=== PATIENT | male | born 1955 | race Caucasian/White ===

== ENCOUNTER 2018-08-06 18:19 | Inpatient (IN) ==
[2018-08-06] MEDS ORDERED: Ketorolac 30 MG/ML VIAL IVP ONE (20:43)
[2018-08-06 21:00] LABS: Basophils # 0.1 K/mcL (0.0-0.2); Basophils % 0.3 %; Eosinophils # 0.1 K/mcL (0.0-0.6); Eosinophils % 0.5 %; Hematocrit 37.8 % (37.5-50.1); Hemoglobin 12.7 g/dL (12.9-16.9); Immature Granulocytes % 0.5 % (0-4); Lymphocytes # 2.7 K/mcL (0.6-4.6); Lymphocytes % 12.3 %; Mean Corpuscular HGB Conc 33.6 g/dL (31.6-35.5); Mean Corpuscular Hemoglobin 34.8 pg (28.0-33.3); Mean Corpuscular Volume 103.6 fL (83.0-100.0); Mean Platelet Volume 10.8 fL (9.4-12.4); Monocytes # 1.5 K/mcL (0.0-1.3); Monocytes % 6.8 %; Neutrophils # 17.4 K/mcL (1.6-8.9); Platelet Count 426 K/mcL (140-400); Red Blood Count 3.65 M/mcL (4.19-5.50); Red Cell Distribution Width 12.9 % (11.5-14.5); Segmented Neutrophils % 79.6 %
[2018-08-06 21:07] LABS: INR 1.3; Prothrombin Time 14.5 Seconds (9.4-12.1)
[2018-08-06 21:10] LABS: Activated Partial Thrombo Time 31.8 Seconds (26.0-36.0)
[2018-08-06 21:21] LABS: Alanine Aminotransferase 13 Units/L (7-52); Albumin/Globulin Ratio 0.7 (1.1-2.2); Alkaline Phosphatase 243 Units/L (34-104); Aspartate Amino Transferase 34 Units/L (13-39); BUN/Creatinine Ratio 20 (6-26); Bilirubin,Direct 0.8 mg/dL (0.0-0.2); Bilirubin,Indirect 1.4 mg/dL (0.0-1.2); Bilirubin,Total 2.2 mg/dL (0.3-1.0); Blood Urea Nitrogen 32 mg/dL (8-23); Calcium 8.9 mg/dL (8.6-10.3); Carbon Dioxide 25 mEq/L (23-29); Chloride 101 mEq/L (98-107); Creatine Kinase 30 Units/L (30-223); Ethanol < 10 mg/dL (Less than 10); Globulin 4.6 g/dL (2.4-3.5); Glucose 103 mg/dL (70-105); Lipase 22 Units/L (11-82); Magnesium 1.6 mg/dL (1.6-2.6); Osmolality,Calculated 291 (280-300); Potassium 3.6 mEq/L (3.5-5.1); Sodium 137 mEq/L (136-145); Total Protein 7.6 g/dL (6.4-8.9); eGFR For Non-African Americans 44 (> 60)
--- NOTE | 2018-08-06 21:32 | Internal Med History&Physical ---
Date of Encounter: 08/06/18 Time of Encounter: 21:27 Internal Medicine - H&P: HPI Chief complaint: abdominal distension Admitted From: Home Plans for Post Hospital Care: Home History of present illness: Rashard Lord is a 63-year-old man with hypertension and is an alcoholic who is referred from [facility] for admission for evaluation of new onset ascites and concern for SBP. The patient states that in the past 8 weeks he has noticed increasing pedal edema which has been progressing upwards and subsequently developed abdominal distention that has continued to expand. He now has abdominal cramping and pain more predominantly in the lower hemiabdomen but denies fever or chills. Says he was prescribed furosemide and spironolactone by his primary care physician but it has not done much to help him as per his who accompanied him. He had a CT scan done on 07/27 and another done today at [facility] which showed a very large amount of ascites throughout the abdomen that increased in size from the first to the second study, moderately large pleural effusion and small left effusion. He was seen to have a WBC of 19.2 and Cr of 1.6 there. He was started on PipTazo prior to transfer to [place]. At this time he reports no active complaints. He admits ongoing alcohol use, last drink was yesterday. He denies blood in his stool or hematemesis. Past Med Surg Social Fam HX - Past Medical History Medical history: COPD, hypertension, liver disease Psychiatric history: no psych history - Past Surgical History Additional surgical history: elbow surgery - Social History Smoking Status: Current every day smoker Packs per day: 1/3 Smokeless Tobacco Status: No Alcohol use: recent Drug use: none All Systems PM: A 10-system review of systems was performed and is negative for pertinent fi ndings except as documented above in the HPI. Family history obtained and found noncontributory. - Constitutional Vitals: Temp Pulse Resp BP Pulse Ox 97.5 F L 96 19 98/66 98 08/06/18 20:33 08/06/18 20:33 08/06/18 20:33 08/06/18 20:33 08/06/18 20:33 Exam: Vitals: Reviewed General: NAD. Self-ambulatory. Skin: Pale, ashy appearing. HEENT: Moist mucous membranes. No conjunctivae pallor. Neck: No lymphadenopathy. No JVD. No carotid bruits. No palpable thyroid. Chest: Normal thoracic expansion. Diminished breath sounds bilaterally. Heart: Normal S1 & S2; rhythmic. No rubs or murmurs. Abdomen: Distended but not tense, mildly tender to palpation in the epigastrium and infraumbilical region. No peritoneal reaction. Extremities: No clubbing, cyanosis. 2+ pitting edema. No calf tenderness. Normal distal pulses. Neurological: Awake, alert and oriented to person, place and time. No focal deficits. Psych: Affect appropriate. Internal Med - H&P Results - Labs CBC & Chem 7: 08/06/18 20:49 08/06/18 20:49 Labs: Short CBC 08/06/18 Range/Units 20:49 WBC 21.9 H (4.3-11.1) K/mcL Hgb 12.7 L (12.9-16.9) g/dL Hct 37.8 (37.5-50.1) % Plt Count 426 H (140-400) K/mcL Neutrophils # 17.4 H (1.6-8.9) K/mcL BMP 08/06/18 20:49 Sodium 137 Potassium 3.6 Chloride 101 Carbon Dioxide 25 BUN 32 H Creatinine 1.61 H Glucose 103 Calcium 8.9 Liver Function 08/06/18 Range/Units 20:49 Total Bilirubin 2.2 H (0.3-1.0) mg/dL Direct Bilirubin 0.8 H (0.0-0.2) mg/dL AST 34 (13-39) Units/L ALT 13 (7-52) Units/L Alkaline Phosphatase 243 H (34-104) Units/L Albumin 3.0 L (3.5-5.7) g/dL - Assessment and plan (1) Ascites Current Visit: Yes Status: Acute Assessment and plan: The patient denies a history of viral hepatitides and just chronic yet ongoing alcohol abuse. It seems he has developed liver cirrhosis with resultant portal hypertension at this time. He says he has never been tapped before. He does have some abdominal discomfort but appears to be associated more with the distension. He has no diffuse pain, peritoneal reaction, fever or chills. He does have unexplained leukocytosis however. He was given PipTazo already which is adequate. Will place on ceftriaxone 2grs q24hrs to commence tomorrow morning after his paracentesis is performed and the fluid studies confirm or suggest SBP. If it does not, then it can be discontinued. IR consultation is requested as the discussion was already held with my predecessor who accepted the admission earlier. He should be plugged in to the GI clinic for follow up as he will also need an EGD to screen for esophageal varices. Will continue oral diuretics in the interim and provide symptomatic relief. Qualifiers: Ascites type: due to alcoholic cirrhosis Qualified Code(s): K70.31 - Alcoholic cirrhosis of liver with ascites (2) Alcohol dependence Current Visit: Yes Status: Acute Assessment and plan: Will place on CIWA protocol. Qualifiers: Substance use status: other alcohol-induced disorder Qualified Code(s): F10.288 - Alcohol dependence with other alcohol-induced disorder (3) Hypertension Current Visit: Yes Status: Acute Assessment and plan: Will resume home medications upon verification. Qualifiers: Hypertension type: essential hypertension Qualified Code(s): I10 - Essential (primary) hypertension (4) Smoker Current Visit: Yes Status: Acute Assessment and plan: Counseled and resources made available. Says he uses an inhaler at home but cannot specify which. Will order nebulizer therapy prn. (5) DVT prophylaxis Current Visit: Yes Status: Acute Assessment and plan: IPC stockings ordered. - Time Spent With Patient Total time spent is greater than 50% in coordination of care (as documented) at patient's floor/unit and/or counseling patient: Greater than 35 minutes
[2018-08-06] MEDS ORDERED: Ipratropium/Albuterol Neb 3 ML IH PRN (21:33)
--- NOTE | 2018-08-07 08:32 | Internal Med Progress Note ---
<Morris Bernal - Last Filed: 08/07/18 16:09> Hospitalist Progress Note - Encounter Date of Encounter: 08/07/18 Time of Encounter: 09:45 - Subjective Interval History: 08/07 Patient seen and evaluated at bedside with and family in accompaniment. He has not been feverish, denies hemoptysis, bruising, hematochezia; no tremor, agitation, or pain. Screening Ankle-Brachial index resulted - normal bilateral MICAELA right 1.18, left 1.16; will hold off on arterial dopplar for now. Admission history: 63 y/o male, [facility] transfer for new onset ascites; he describes 8 weeks of pedal edema; progressively ascending swelling, and abdo monique distension. CT x 2 07/27 then 08/06 showing interval worsening of ascites. - Exam Vitals: Temp Pulse Resp BP Pulse Ox 99.0 F 90 16 107/71 91 08/07/18 07:44 08/07/18 07:44 08/07/18 07:44 08/07/18 07:44 08/07/18 07:44 Exam: Vitals: 99, 90, 16, 107/71, 91%RA General: NAD. Self-ambulatory. Skin: no jaundice HEENT: Moist mucous membranes. No conjunctivae pallor, nonicteric Neck: No lymphadenopathy. No JVD. No carotid bruits. No palpable thyroid. Chest: Normal thoracic expansion. Diminished breath sounds bilaterally. Heart: Normal S1 & S2; rhythmic. No rubs or murmurs. Abdomen: Distended and taught, no caput Extremities: No clubbing, cyanosis. 2+ pedal edema, calves encased in EPCDs Neurological: Awake, alert and oriented to person, place and time. No focal deficits. No tremor. Psych: Affect appropriate - Assessment and Plan (1) Ascites Current Visit: Yes Status: Acute Assessment and Plan: Paracentesis with IR ([facility] staff) planned today; continuing lasix and spironolactone (K 3.6 today), will send fluid for culture Will initiate rocephin after tap Regular diet (2) Alcohol dependence Current Visit: Yes Status: Acute Assessment and Plan: Continue CIWA protocol No tremor or agitation on exam today (3) Hypertension Current Visit: Yes Status: Acute Assessment and Plan: Chronic, continuing acei-i/diuretics/bb (4) Smoker Current Visit: Yes Status: Acute Assessment and Plan: Discussed alcohol and tobacco risks in setting of his chronic and acute conditions (5) DVT prophylaxis Current Visit: Yes Status: Acute Assessment and Plan: EPCDs - Time Spent with Patient Total time spent is greater than 50% in coordination of care (as documented) at patient's floor/unit and/or counseling patient: Internal Medicine: Result - Labs CBC & Chem 7: 08/06/18 20:49 08/06/18 20:49 Labs: Short CBC 08/06/18 Range/Units 20:49 WBC 21.9 H (4.3-11.1) K/mcL Hgb 12.7 L (12.9-16.9) g/dL Hct 37.8 (37.5-50.1) % Plt Count 426 H (140-400) K/mcL Neutrophils # 17.4 H (1.6-8.9) K/mcL BMP 08/06/18 20:49 Sodium 137 Potassium 3.6 Chloride 101 Carbon Dioxide 25 BUN 32 H Creatinine 1.61 H Glucose 103 Calcium 8.9 Liver Function 08/06/18 Range/Units 20:49 Total Bilirubin 2.2 H (0.3-1.0) mg/dL Direct Bilirubin 0.8 H (0.0-0.2) mg/dL AST 34 (13-39) Units/L ALT 13 (7-52) Units/L Alkaline Phosphatase 243 H (34-104) Units/L Albumin 3.0 L (3.5-5.7) g/dL - ABG Interpretation ABG results: PT/INR, D-dimer PT 14.5 Seconds (9.4-12.1) H 08/06/18 20:49 Consult Discharge Plan - Plan Referrals: Sam Perez MD [Primary Care Provider] - <Ian Wetzel - Last Filed: 08/07/18 16:33> Hospitalist Progress Note - Encounter Date of Encounter: 08/07/18 - Exam Vitals: Temp Pulse Resp BP Pulse Ox 97.8 F 94 18 98/61 99 08/07/18 13:32 08/07/18 13:32 08/07/18 13:32 08/07/18 13:32 08/07/18 13:32 - Assessment and Plan (1) Ascites Current Visit: Yes Status: Chronic (2) SBP (spontaneous bacterial peritonitis) Current Visit: Yes Status: Suspected Assessment and Plan: Rocephin started. (3) Alcohol dependence Current Visit: Yes Status: Chronic (4) Hypertension Current Visit: Yes Status: Chronic (5) Smoker Current Visit: Yes Status: Acute (6) DVT prophylaxis Current Visit: Yes Status: Acute (7) Tobacco abuse Current Visit: Yes Status: Chronic - Time Spent with Patient Total time spent is greater than 50% in coordination of care (as documented) at patient's floor/unit and/or counseling patient: Internal Medicine: Result - Labs CBC & Chem 7: 08/06/18 20:49 08/06/18 20:49 Labs: Short CBC 08/06/18 Range/Units 20:49 WBC 21.9 H (4.3-11.1) K/mcL Hgb 12.7 L (12.9-16.9) g/dL Hct 37.8 (37.5-50.1) % Plt Count 426 H (140-400) K/mcL Neutrophils # 17.4 H (1.6-8.9) K/mcL BMP 08/06/18 20:49 Sodium 137 Potassium 3.6 Chloride 101 Carbon Dioxide 25 BUN 32 H Creatinine 1.61 H Glucose 103 Calcium 8.9 Liver Function 08/06/18 08/07/18 Range/Units 20:49 13:43 Total Bilirubin 2.2 H (0.3-1.0) mg/dL Direct Bilirubin 0.8 H (0.0-0.2) mg/dL AST 34 (13-39) Units/L ALT 13 (7-52) Units/L Alkaline Phosphatase 243 H (34-104) Units/L Albumin 3.0 L 2.2 L (3.5-5.7) g/dL Urine 08/07/18 Range/Units 10:00 Urine Color Dark Yellow (Yellow) Urine Clarity Clear (Clear) Urine pH 5.5 (5.0-8.0) pH Units Ur Specific [place] 1.022 (1.010-1.025) Urine Protein Negative (Neg-Trace) mg/dL Urine Glucose (UA) Normal (Normal) mg/dL - ABG Interpretation ABG results: PT/INR, D-dimer PT 14.5 Seconds (9.4-12.1) H 08/06/18 20:49 - Impressions Impressions Paracentesis Ultrasound 08/07/18 00:00 IMPRESSION: Successful ultrasound-guided paracentesis. Nearly 6 L of fluid was removed. D/ / Harpreet Olguin MD / Harpreet Olguin MD Interpreting Provider: Harpreet Olguin MD Abdomen/Pelvis CT 08/07/18 11:30 IMPRESSION: 1. Large volume abdominal/pelvic ascites. 2. Mildly nodular contour of the liver could relate to cirrhosis. No discrete liver lesion seen. 3. Partially visualized large right pleural effusion with adjacent compressive atelectasis. Small left pleural effusion. 4. Mild sigmoid diverticulosis. 5. Small to moderate hiatal hernia. 6. Although the bladder is not well distended, there is moderate wall thickening which is nonspecific. Please correlate with urinalysis. D/ / Harpreet Olguin MD / Harpreet Olguin MD Interpreting Provider: Harpreet Olguin MD - Attending Attestation I examined this patient and my medical decision-making was reviewed with the Resident Physician on 08/07/18. I agree with the documented findings, disposition and treatment plan as described except to the extent set forth below. Mr Lord has been placed in observation for ascites and concern for SBP. He remains moderate to high risk due to potential for worsening clinical status. Mr Lord is resting at this type. Denies CP. Some dyspnea at rest. Abdomen distended. No fever or chills. No cough. Exam alert Comfortable Mucus membranes dry Heart not tachy No wheeze abd distended. Denies tenderness I/P 1. Ascites - possible SBP. Paracentesis today. Start Rocephin after 2. Cirrhosis 3. ETOH. Further diagnoses and plan as above. <Morris Bernal - Last Filed: 08/07/18 16:09> (1) Ascites Qualifiers: Ascites type: due to alcoholic cirrhosis Qualified Code(s): K70.31 - Alcoholic cirrhosis of liver with ascites (2) Alcohol dependence Qualifiers: Substance use status: other alcohol-induced disorder Qualified Code(s): F10.288 - Alcohol dependence with other alcohol-induced disorder (3) Hypertension Qualifiers: Hypertension type: essential hypertension Qualified Code(s): I10 - Essential (primary) hypertension <Milton Wetzelin Preeti - Last Filed: 08/07/18 16:33> (1) Ascites Qualifiers: Ascites type: due to alcoholic cirrhosis Qualified Code(s): K70.31 - Alcoholic cirrhosis of liver with ascites (3) Alcohol dependence Qualifiers: Substance use status: other alcohol-induced disorder Qualified Code(s): F10.288 - Alcohol dependence with other alcohol-induced disorder (4) Hypertension Qualifiers: Hypertension type: essential hypertension Qualified Code(s): I10 - Essential (primary) hypertension
[2018-08-07] MEDS: Lisinopril-HCTZ 20-12.5mg TABLET PO SCH (08:44)
[2018-08-07] MEDS: Metoprolol XL (24 HR) Succ 50 MG TAB.ER.24H PO SCH (08:44)
[2018-08-07] MEDS: Folic Acid 1 MG TABLET PO SCH (08:44)
[2018-08-07] MEDS: Furosemide 40 MG TABLET PO SCH (08:44)
[2018-08-07 11:01] LABS: Bilirubin,Urine Small (Negative); Blood,Urine Negative (Negative); Clarity,Urine Clear (Clear); Color,Urine Dark Yellow (Yellow); Leukocyte Esterase,Urine Negative (Negative); Nitrite,Urine Negative (Negative); PH,Urine 5.5 pH Units (5.0-8.0); Protein,Urine Negative (Neg-Trace); Specific Gravity,Urine 1.022 (1.010-1.025); Urobilinogen,Urine Normal (Normal)
[2018-08-07 11:03] LABS: Glucose,Urine (UA) Normal (Normal); Ketones,Urine Trace mg/dL (Negative)
[2018-08-07 11:16] LABS: Amphetamine Screen,Urine Negative ng/mL (Cutoff=1000); Barbiturate Screen,Urine Negative ng/mL (Cutoff=200); Benzodiazepines Screen,Urine Negative ng/mL (Cutoff=200); Cannabinoid Screen,Urine Negative ng/mL (Cutoff = 50); Cocaine Screen,Urine Negative ng/mL (Cutoff= 300); Opiate Screen,Urine Negative ng/mL (Cutoff=300); Phencyclidine Screen,Urine Negative ng/mL (Cutoff=25)
[2018-08-07] MEDS: cefTRIAXone 2,000 MG in Water for inj. (sterile) 20 ML 20 ML IVPB SCH (13:35)
[2018-08-07 14:37] LABS: RBC,Peritoneal Fluid < 0.002 M/mcL
[2018-08-07 14:52] LABS: Appearance of Peritoneal Fl CLEAR (Clear)
[2018-08-07 15:07] LABS: Amylase,Peritoneal Fluid 13 Units/L (No Ref Range); Glucose,Peritoneal Fluid 124 mg/dL (No Ref Range); LDH,Peritoneal Fluid 38 Units/L (No Ref Range); Total Protein,Peritoneal Fluid < 3.0 g/dL (No Ref Range)
[2018-08-07] MEDS ORDERED: *HR* LORazepam 2 MG/ML VIAL IVP PRN ×3 (16:39)
[2018-08-07] MEDS ORDERED: Albumin 25% 25gram/100mL 25 GM/100 ML IV.SOLN IVPB ONE (17:42)
[2018-08-08 03:16] LABS: Basophils # 0.1 K/mcL (0.0-0.2); Basophils % 0.3 %; Eosinophils # 0.2 K/mcL (0.0-0.6); Eosinophils % 1.4 %; Hematocrit 29.2 % (37.5-50.1); Hemoglobin 9.9 g/dL (12.9-16.9); Immature Granulocytes % 0.5 % (0-4); Lymphocytes # 2.1 K/mcL (0.6-4.6); Lymphocytes % 13.4 %; Mean Corpuscular HGB Conc 33.9 g/dL (31.6-35.5); Mean Corpuscular Hemoglobin 34.6 pg (28.0-33.3); Mean Corpuscular Volume 102.1 fL (83.0-100.0); Mean Platelet Volume 10.5 fL (9.4-12.4); Monocytes # 1.4 K/mcL (0.0-1.3); Monocytes % 8.7 %; Neutrophils # 11.8 K/mcL (1.6-8.9); Platelet Count 313 K/mcL (140-400); Red Blood Count 2.86 M/mcL (4.19-5.50); Red Cell Distribution Width 12.8 % (11.5-14.5); Segmented Neutrophils % 75.7 %
[2018-08-08 03:36] LABS: Potassium 3.5 mEq/L (3.5-5.1)
[2018-08-08] MEDS ORDERED: Albumin 25% 25gram/100mL 25 GM/100 ML IV.SOLN IVPB ONE (07:41)
--- NOTE | 2018-08-08 08:03 | Internal Med Progress Note ---
<KianaMorris zamora - Last Filed: 08/08/18 11:14> Hospitalist Progress Note - Encounter Date of Encounter: 08/08/18 Time of Encounter: 09:45 - Subjective Interval History: 08/08 Mr. Lord is comfortable in bed, pleasant and denies pain, in the setting of his alcohol use he denies tremor, restlessness, he is s/p 5.9L removed yesterd ay, he states he feels better compared to yesterday pressure and distention, denies dizziness, no fevers, shortness of breath, chest pain, or abdominal pain 08/07 Patient seen and evaluated at bedside with and family in accompaniment. He has not been feverish, denies hemoptysis, bruising, hematochezia; no tremor, agitation, or pain. Screening Ankle-Brachial index resulted - normal bilateral MICAELA right 1.18, left 1.16; will hold off on arterial dopplar for now. Admission history: 63 y/o male, [facility] transfer for new onset ascites; he describes 8 weeks of pedal edema; progressively ascending swelling, and abdominal distension. CT x 2 07/27 then 08/06 showing interval worsening of ascites. - Exam Vitals: Temp Pulse Resp BP Pulse Ox 98.2 F 84 16 96/61 92 08/08/18 06:45 08/08/18 06:45 08/08/18 06:45 08/08/18 06:45 08/08/18 06:45 Exam: General: NAD. Self-ambulatory. Skin: no jaundice HEENT: Moist mucous membranes. No conjunctivae pallor, nonicteric Neck: No lymphadenopathy. No JVD. No carotid bruits. No palpable thyroid. Chest: Normal thoracic expansion. Diminished breath sounds bilaterally. Heart: Normal S1 & S2; rhythmic. No rubs or murmurs. Abdomen: less distended no pain, no caput Extremities: No clubbing, cyanosis. 2+ pedal edema, calves encased in EPCDs Neurological: Awake, alert and oriented to person, place and time. No focal deficits. No tremor. Psych: Affect appropriate - Assessment and Plan (1) Ascites Current Visit: Yes Status: Chronic Assessment and Plan: S/p 5.9L removed; receiving 2 doses of 25% albumin todal, not symptomatically hypotensive, though his BPs were in 100s systolic prior to para Continuing rocephin, cultures likely result on Thursday Possible GI consult Thursday to determine time course of antibiotics in setting of leukocytosis/poss occult SBP Regular diet (2) Alcohol dependence Current Visit: Yes Status: Chronic Assessment and Plan: We are continuing CIWA No tremor or agitation thus far (3) Hypertension Current Visit: Yes Status: Chronic Assessment and Plan: Continuing home medications, may go down on BB if patient is in 90s systolic consistently (4) Smoker Current Visit: Yes Status: Acute Assessment and Plan: Smoking cessation discussed (5) DVT prophylaxis Current Visit: Yes Status: Acute Assessment and Plan: Continuing intermittent pneumatic compression - Time Spent with Patient Total time spent is greater than 50% in coordination of care (as documented) at patient's floor/unit and/or counseling patient: Internal Medicine: Result - Labs CBC & Chem 7: 08/08/18 03:04 08/08/18 03:04 Labs: Short CBC 08/08/18 Range/Units 03:04 WBC 15.5 H (4.3-11.1) K/mcL Hgb 9.9 L D (12.9-16.9) g/dL Hct 29.2 L (37.5-50.1) % Plt Count 313 (140-400) K/mcL Neutrophils # 11.8 H (1.6-8.9) K/mcL BMP 08/08/18 03:04 Sodium 142 Potassium 3.5 Chloride 106 Carbon Dioxide 29 BUN 35 H Creatinine 1.68 H Glucose 119 H Calcium 8.0 L Liver Function 08/07/18 Range/Units 13:43 Albumin 2.2 L (3.5-5.7) g/dL Urine 08/07/18 Range/Units 10:00 Urine Color Dark Yellow (Yellow) Urine Clarity Clear (Clear) Urine pH 5.5 (5.0-8.0) pH Units Ur Specific [place] 1.022 (1.010-1.025) Urine Protein Negative (Neg-Trace) mg/dL Urine Glucose (UA) Normal (Normal) mg/dL - ABG Interpretation ABG results: PT/INR, D-dimer PT 14.5 Seconds (9.4-12.1) H 08/06/18 20:49 - Impressions Impressions Paracentesis Ultrasound 08/07/18 00:00 IMPRESSION: Successful ultrasound-guided paracentesis. Nearly 6 L of fluid was removed. D/ / Harpreet Olguin MD / Harpreet Olguin MD Interpreting Provider: Harpreet Olguin MD Abdomen/Pelvis CT 08/07/18 11:30 IMPRESSION: 1. Large volume abdominal/pelvic ascites. 2. Mildly nodular contour of the liver could relate to cirrhosis. No discrete liver lesion seen. 3. Partially visualized large right pleural effusion with adjacent compressive atelectasis. Small left pleural effusion. 4. Mild sigmoid diverticulosis. 5. Small to moderate hiatal hernia. 6. Although the bladder is not well distended, there is moderate wall thickening which is nonspecific. Please correlate with urinalysis. D/ / Harpreet Olguin MD / Harpreet Olguin MD Interpreting Provider: Harpreet Olguin MD - VTE Documentation of Mechanical Device: Intermittent pneumatic compression device Consult Discharge Plan - Plan Referrals: Sam Perez MD [Primary Care Provider] - <Ian Wetzel - Last Filed: 08/08/18 16:08> Hospitalist Progress Note - Encounter Date of Encounter: 08/08/18 - Exam Vitals: Temp Pulse Resp BP Pulse Ox 99.8 F H 90 16 95/53 90 08/08/18 15:56 08/08/18 15:56 08/08/18 15:56 08/08/18 15:56 08/08/18 15:56 - Assessment and Plan (1) Ascites Current Visit: Yes Status: Chronic (2) SBP (spontaneous bacterial peritonitis) Current Visit: Yes Status: Suspected (3) Alcohol dependence Current Visit: Yes Status: Chronic (4) Hypertension Current Visit: Yes Status: Chronic (5) Smoker Current Visit: Yes Status: Acute (6) DVT prophylaxis Current Visit: Yes Status: Acute (7) Tobacco abuse Current Visit: Yes Status: Chronic - Time Spent with Patient Total time spent is greater than 50% in coordination of care (as documented) at patient's floor/unit and/or counseling patient: Internal Medicine: Result - Labs CBC & Chem 7: 08/08/18 03:04 08/08/18 03:04 Labs: Short CBC 08/08/18 Range/Units 03:04 WBC 15.5 H (4.3-11.1) K/mcL Hgb 9.9 L D (12.9-16.9) g/dL Hct 29.2 L (37.5-50.1) % Plt Count 313 (140-400) K/mcL Neutrophils # 11.8 H (1.6-8.9) K/mcL BMP 08/08/18 03:04 Sodium 142 Potassium 3.5 Chloride 106 Carbon Dioxide 29 BUN 35 H Creatinine 1.68 H Glucose 119 H Calcium 8.0 L - ABG Interpretation ABG results: PT/INR, D-dimer PT 14.5 Seconds (9.4-12.1) H 08/06/18 20:49 - Attending Attestation I examined this patient and my medical decision-making was reviewed with the Resident Physician on 08/08/18. I agree with the documented findings, disposition and treatment plan as described except to the extent set forth below. Mr Lord is currently in observation for ascites and concern for SBP. He remains moderate to high risk due to potential for worsening clinical status. Mr Lord feels better after paracentesis yesterday. WBC has improved some today. No fever or chills. No CP or SOB. Exam alert Comfortable eating breakfast Mucus membranes dry Heart reg No wheeze Abd soft and not distended today No edema I/P 1. Ascites - s/p paracentesis 2. Possible SBP - WBC improved after starting Rocephin Further diagnoses and plan as above. <Morris Bernal - Last Filed: 08/08/18 11:14> (1) Ascites Qualifiers: Ascites type: due to alcoholic cirrhosis Qualified Code(s): K70.31 - Alcoholic cirrhosis of liver with ascites (2) Alcohol dependence Qualifiers: Substance use status: other alcohol-induced disorder Qualified Code(s): F10.288 - Alcohol dependence with other alcohol-induced disorder (3) Hypertension Qualifiers: Hypertension type: essential hypertension Qualified Code(s): I10 - Essential (primary) hypertension <Ian Wetzel - Last Filed: 08/08/18 16:08> (1) Ascites Qualifiers: Ascites type: due to alcoholic cirrhosis Qualified Code(s): K70.31 - Alcoholic cirrhosis of liver with ascites (3) Alcohol dependence Qualifiers: Substance use status: other alcohol-induced disorder Qualified Code(s): F10.288 - Alcohol dependence with other alcohol-induced disorder (4) Hypertension Qualifiers: Hypertension type: essential hypertension Qualified Code(s): I10 - Essential (primary) hypertension
[2018-08-08] MEDS: cefTRIAXone 2,000 MG in Water for inj. (sterile) 20 ML 20 ML IVPB SCH (08:18)
[2018-08-08] MEDS: Folic Acid 1 MG TABLET PO SCH (08:19)
[2018-08-08] MEDS: Furosemide 40 MG TABLET PO SCH (08:19)
[2018-08-08] MEDS: Lisinopril-HCTZ 20-12.5mg TABLET PO SCH (08:19)
[2018-08-08] MEDS: Metoprolol XL (24 HR) Succ 50 MG TAB.ER.24H PO SCH (08:19)
[2018-08-09 06:17] LABS: Basophils # 0.1 K/mcL (0.0-0.2); Basophils % 0.3 %; Eosinophils # 0.3 K/mcL (0.0-0.6); Eosinophils % 1.9 %; Hematocrit 32.8 % (37.5-50.1); Hemoglobin 10.9 g/dL (12.9-16.9); Immature Granulocytes % 0.6 % (0-4); Lymphocytes # 2.6 K/mcL (0.6-4.6); Lymphocytes % 16.2 %; Mean Corpuscular HGB Conc 33.2 g/dL (31.6-35.5); Mean Corpuscular Hemoglobin 34.6 pg (28.0-33.3); Mean Corpuscular Volume 104.1 fL (83.0-100.0); Mean Platelet Volume 10.7 fL (9.4-12.4); Monocytes # 1.1 K/mcL (0.0-1.3); Monocytes % 7.1 %; Neutrophils # 11.7 K/mcL (1.6-8.9); Platelet Count 346 K/mcL (140-400); Red Blood Count 3.15 M/mcL (4.19-5.50); Segmented Neutrophils % 73.9 %
[2018-08-09 06:34] LABS: BUN/Creatinine Ratio 19 (6-26); Blood Urea Nitrogen 26 mg/dL (8-23); Calcium 8.2 mg/dL (8.6-10.3); Carbon Dioxide 30 mEq/L (23-29); Chloride 106 mEq/L (98-107); Glucose 113 mg/dL (70-105); Osmolality,Calculated 302 (280-300); Potassium 3.1 mEq/L (3.5-5.1); Sodium 143 mEq/L (136-145); eGFR For Non-African Americans 52 (> 60)
--- NOTE | 2018-08-09 09:15 | Internal Med Progress Note ---
<Ian Wetzel - Last Filed: 08/09/18 14:44> Hospitalist Progress Note - Encounter Date of Encounter: 08/09/18 - Exam Vitals: Temp Pulse Resp BP Pulse Ox 97.9 F 93 19 97/58 95 08/09/18 11:41 08/09/18 11:41 08/09/18 11:41 08/09/18 11:41 08/09/18 11:41 - Assessment and Plan (1) Ascites Current Visit: Yes Status: Chronic (2) SBP (spontaneous bacterial peritonitis) Current Visit: Yes Status: Suspected (3) Alcohol dependence Current Visit: Yes Status: Chronic (4) Hypertension Current Visit: Yes Status: Chronic (5) Smoker Current Visit: Yes Status: Acute (6) DVT prophylaxis Current Visit: Yes Status: Acute (7) Tobacco abuse Current Visit: Yes Status: Chronic - Time Spent with Patient Total time spent is greater than 50% in coordination of care (as documented) at patient's floor/unit and/or counseling patient: Internal Medicine: Result - Labs CBC & Chem 7: 08/09/18 05:52 08/09/18 05:52 Labs: Short CBC 08/09/18 Range/Units 05:52 WBC 15.9 H (4.3-11.1) K/mcL Hgb 10.9 L (12.9-16.9) g/dL Hct 32.8 L (37.5-50.1) % Plt Count 346 (140-400) K/mcL Neutrophils # 11.7 H (1.6-8.9) K/mcL BMP 08/09/18 05:52 Sodium 143 Potassium 3.1 L Chloride 106 Carbon Dioxide 30 H BUN 26 H Creatinine 1.39 H Glucose 113 H Calcium 8.2 L - ABG Interpretation ABG results: PT/INR, D-dimer PT 14.5 Seconds (9.4-12.1) H 08/06/18 20:49 Consult Discharge Plan - Plan Referrals: Sam Perez MD [Primary Care Provider] - - Attending Attestation I examined this patient and my medical decision-making was reviewed with the Resident Physician on 08/09/18. I agree with the documented findings, disposition and treatment plan as described except to the extent set forth jeremy cat. Mr Lord is currently admitted for ascites, cirrhosis and concern for SBP. He is on IV abx. He remains moderate to high risk due to potential for worsening clinical status. Mr Lord feels OK. Tolerating IV abx. Fluid cx neg. No fever now. No diarrhea. No CP or SOB. WBC still elevated but stable from yesterday. Exam alert Comfortable Mucus membranes dry Heart reg No wheeze Abd soft and nontender No tremor I/P 1. Possible SBP - on IV Ceftriaxone 2. Ascites and cirrhosis Further diagnoses and plan as above. GI to see today - ? need further abx and if IV or PO. <Morris Bernal - Last Filed: 08/09/18 17:52> Hospitalist Progress Note - Encounter Date of Encounter: 08/09/18 Time of Encounter: 12:45 - Subjective Interval History: 08/09 Patient seen and evaluated at bedside, present and asks questions. He is in no pain, does not feel dizziness, tremor, craving for alcohol, agitation, or fever. Plan for liver US in evening. 08/08 Mr. Lord is comfortable in bed, pleasant and denies pain, in the setting of his alcohol use he denies tremor, restlessness, he is s/p 5.9L removed yesterday, he states he feels better compared to yesterday pressure and distention, denies dizziness, no fevers, shortness of breath, chest pain, or abdominal pain 08/07 Patient seen and evaluated at bedside with and family in accompaniment. He has not been feverish, denies hemoptysis, bruising, hematochezia; no tremor, agitation, or pain. Screening Ankle-Brachial index resulted - normal bilateral MICAELA right 1.18, left 1.16; will hold off on arterial dopplar for now. Admission history: 63 y/o male, [facility] transfer for new onset ascites; he describes 8 weeks of pedal edema; progressively ascending swelling, and abdominal distension. CT x 2 07/27 then 08/06 showing interval worsening of ascites. - Exam Vitals: Temp Pulse Resp BP Pulse Ox 97.8 F 89 18 95/61 95 08/09/18 07:42 08/09/18 07:42 08/09/18 07:42 08/09/18 07:42 08/09/18 07:42 Exam: General: NAD. Self-ambulatory. Skin: no jaundice or bruising HEENT: Moist mucous membranes. No conjunctivae pallor, nonicteric Neck: No lymphadenopathy. No JVD. No carotid bruits. No palpable thyroid. Chest: Normal thoracic expansion. Diminished breath sounds bilaterally. Heart: Normal S1 & S2; rhythmic. No rubs or murmurs. Abdomen: less distended no pain, no caput Extremities: No clubbing, cyanosis. 2+ pedal edema, calves encased in EPCDs, no tremor Neurological: Awake, alert and oriented to person, place and time. No focal deficits. No tremor. Psych: Affect appropriate - Assessment and Plan (1) Ascites Current Visit: Yes Status: Chronic Assessment and Plan: S/p 5.9L removed; received 2 doses of 25% albumin total; not symptomatically hypotensive, though his BPs were in 100s systolic prior to para Regular diet Appreciate GI recs Plan for continued abx in setting of leukocytosis Other Source? Ordering PA/Lat CXR today Liver US this evening (2) Alcohol dependence Current Visit: Yes Status: Chronic Assessment and Plan: We are continuing CIWA No tremor or agitation thus far (3) Hypertension Current Visit: Yes Status: Chronic Assessment and Plan: Continuing home medications, reduced Toprol to 25mg in setting of persisting mid 90s systolic BP (4) Smoker Current Visit: Yes Status: Acute Assessment and Plan: Smoking cessation discussed (5) DVT prophylaxis Current Visit: Yes Status: Acute Assessment and Plan: Continuing intermittent pneumatic compression (2) Alcohol dependence Current Visit: Yes Status: Chronic (3) Hypertension Current Visit: Yes Status: Chronic (4) Smoker Current Visit: Yes Status: Acute (5) DVT prophylaxis Current Visit: Yes Status: Acute - Time Spent with Patient Total time spent is greater than 50% in coordination of care (as documented) at patient's floor/unit and/or counseling patient: Internal Medicine: Result - Labs CBC & Chem 7: 08/09/18 05:52 08/09/18 05:52 Labs: Short CBC 08/09/18 Range/Units 05:52 WBC 15.9 H (4.3-11.1) K/mcL Hgb 10.9 L (12.9-16.9) g/dL Hct 32.8 L (37.5-50.1) % Plt Count 346 (140-400) K/mcL Neutrophils # 11.7 H (1.6-8.9) K/mcL BMP 08/09/18 05:52 Sodium 143 Potassium 3.1 L Chloride 106 Carbon Dioxide 30 H BUN 26 H Creatinine 1.39 H Glucose 113 H Calcium 8.2 L - ABG Interpretation ABG results: PT/INR, D-dimer PT 14.5 Seconds (9.4-12.1) H 08/06/18 20:49 - VTE Documentation of Mechanical Device: Intermittent pneumatic compression device <Ian Wetzel - Last Filed: 08/09/18 14:44> (1) Ascites Qualifiers: Ascites type: due to alcoholic cirrhosis Qualified Code(s): K70.31 - Alcoholic cirrhosis of liver with ascites (3) Alcohol dependence Qualifiers: Substance use status: other alcohol-induced disorder Qualified Code(s): F10.288 - Alcohol dependence with other alcohol-induced disorder (4) Hypertension Qualifiers: Hypertension type: essential hypertension Qualified Code(s): I10 - Essential (primary) hypertension <Morris Bernal - Last Filed: 08/09/18 17:52> (1) Ascites Qualifiers: Ascites type: due to alcoholic cirrhosis Qualified Code(s): K70.31 - Alcoholic cirrhosis of liver with ascites (2) Alcohol dependence Qualifiers: Substance use status: other alcohol-induced disorder Qualified Code(s): F10.288 - Alcohol dependence with other alcohol-induced disorder (3) Hypertension Qualifiers: Hypertension type: essential hypertension Qualified Code(s): I10 - Essential (primary) hypertension
[2018-08-09] MEDS: cefTRIAXone 2,000 MG in Water for inj. (sterile) 20 ML 20 ML IVPB SCH (10:09)
[2018-08-09] MEDS: Metoprolol XL (24 HR) Succ 50 MG TAB.ER.24H PO SCH (10:09)
[2018-08-09] MEDS: Lisinopril-HCTZ 20-12.5mg TABLET PO SCH (10:12)
[2018-08-09] MEDS: Folic Acid 1 MG TABLET PO SCH (10:13)
[2018-08-09] MEDS: Furosemide 40 MG TABLET PO SCH (10:13)
--- NOTE | 2018-08-09 11:03 | Gastroenterology Consult Note ---
<Garc[facility]Franklin House - Last Filed: 08/09/18 11:01> Date of Encounter: 08/09/18 Time of Encounter: 09:55 - Assessment and plan (1) Cirrhosis of liver with ascites Current Visit: Yes Status: Acute Assessment and plan: MELD-Na 19, Child-Bills class B, DF 20.6. Complete liver work up (AFP, alpha-1 antitrypsin, RC, ceruloplasmin, F actin, ferritin, AMA, hepatitis profile, liver ultrasound). Continue Lasix and Aldactone. Start Lactulose, titrate for 2-4 BM daily. Recommend completing 7 more days of antibiotics due to leukocytosis. Peritoneal neutrophils 16. Lifestyle Changes: 1. Total abstinence from alcohol including social drinking. 2. No smoking. 3. Gradual loss of weight. 4. Drink at least 3 cups of coffee due to its antioxidant effects in the liver, it reduces risk of HCC and advance fibrosis. 5. If needed, use less than 2 g/day of Tylenol (in divided doses). 6. Vaccination for Hep A, B, Pneumococcus if not already received and yearly influenza vaccination by PCP. 7. Avoid NSAIDS as can cause kidney damage. 8. Avoid benzodiazepines and other sedatives such as anti-histamines, narcotics etc. as can cause encephalopathy or confusion. 9. Take a late carbohydrate meal supplement as it reduces glucose production from protein breakdown and thus improves nutrition. 10. In cirrhosis, statins are safe to use and also improve portal hypertension and decrease risk of HCC. 11. Screening: Hepatocellular cancer screening: US of liver and AFP every 6 months. Qualifiers: Hepatic cirrhosis type: alcoholic cirrhosis Qualified Code(s): K70.31 - Alcoholic cirrhosis of liver with ascites - Time Spent With Patient Total time spent is greater than 50% in coordination of care (as documented) at patient's floor/unit and/or counseling patient: GI History of Present Illness - Data of Consult Patient: new to practice Consult date: 08/09/18 Requesting Physician: Ian Wetzel DO - Consult Narrative Reason for consult: Ascites History of present illness: Mr. Lord is a 63 year old male with PMHx of COPD, HTN, ETOH abuse (pt states he stopped 2-3 weeks ago) who was sent from [place] for evaluation of new onset ascites and concern for SBP. The patient states that in the past 8 weeks he has noticed increasing pedal edema which has been progressing upwards and subsequently developed abdominal distention that has continued to expand. Says he was prescribed furosemide and spironolactone by his primary care physician but it has not done much to help him. He had a CT scan done on 07/27 and another done today at [place] which showed a very large amount of ascites throughout the abdomen that increased in size from the first to the second study, moderately large pleural effusion and small left effusion. He was started on PipTazo prior to transfer to [place]. On admission here, WBC 21.9. Paracentesis completed 08/07 with 5.9 L removed. Procedures: None NSAIDs: None Anticoagulation: None Past Med Surg Social Fam HX - Past Medical History Medical history: COPD, hypertension, liver disease Psychiatric history: no psych history - Past Surgical History Additional surgical history: elbow surgery - Social History Smoking Status: Current every day smoker Packs per day: 1/ Smokeless Tobacco Status: No Alcohol use: recent Drug use: none - Gastrointestinal Gastrointestinal: Present: as per HPI - Constitutional Constitutional: as per HPI - EENT Eyes: as per HPI Ears: Present: as per HPI Nose, mouth and throat: Present: as per HPI - Cardiovascular Cardiovascular ROS: Present: as per HPI - Respiratory Respiratory IM: Present: as per HPI - Genitourinary Genitourinary: Absent: change in color, Urinary frequency - Neurological ROS Neurological GI: Present: as per HPI - Hematologic/Lymphatic Hematologic/Lymphatic pediatric: Present: as per HPI - Musculoskeletal Musculoskeletal ROS GI: Present: as per HPI - Integumentary Integumentary GI: Present: as per HPI - Psychiatric ROS Psychiatric GI: Present: as per HPI - Endocrine Endocrine IM: Present: as per HPI - Constitutional Vitals: Temp Pulse Resp BP Pulse Ox 97.8 F 99 18 96/61 95 08/09/18 07:42 08/09/18 10:12 08/09/18 07:42 08/09/18 10:12 08/09/18 07:42 General appearance: Present: cooperative, A&O X 3, no acute distress, answers questions appropriately - Head Head exam: Present: atraumatic, normocephalic - Eye Eye exam: Present: normal appearance, sclera anicteric - ENT ENT exam: Present: mucous membranes dry - Neck Neck exam general surgery: Present: normal inspection, trachea midline - Respiratory Respiratory exam: Present: CTAB. Absent: rales, rhonchi - Cardiovascular Cardiovascular exam: Present: RRR, +S1, +S2 - GI/Abdominal GI/Abdominal exam: Present: distended, soft, no peritoneal signs. Absent: firm, guarding, tenderness - Expanded GI/Abdominal Exam GI/Abdominal exam expanded: Present: ascites - Rectal Rectal exam: Present: deferred - Extremities Exam Extremities exam: Present: warm - Neurological Exam Neurological exam: Present: no focal deficits - Psychiatric Psychiatric exam: Present: normal affect, normal mood - Skin Skin exam: Present: dry, intact, normal color, warm Results - Labs CBC & Chem 7: 08/09/18 05:52 08/09/18 05:52 Labs: Last Result Calcium 8.2 mg/dL (8.6-10.3) L 08/09/18 05:52 Peritoneal Appearance CLEAR (Clear) 08/07/18 12:15 Peritoneal Volume 35.0 mL 08/07/18 12:15 Peritoneal RBC < 0.002 M/mcL (0.000-0.002) 08/07/18 12:15 Periton Tot Nuc Cells 71 TNC/mcL (0-300) 08/07/18 12:15 Periton Band Neuts 4.0 % 08/07/18 12:15 Periton Lymphocytes % 32.0 % 08/07/18 12:15 Periton Monocytes % 20.0 % 08/07/18 12:15 Periton Other Cells % 28.0 % 08/07/18 12:15 Peritoneal Tot Protein < 3.0 g/dL (No Ref Range) 08/07/18 12:15 Peritoneal LDH 38 Units/L (No Ref Range) 08/07/18 12:15 Peritoneal Glucose 124 mg/dL (No Ref Range) 08/07/18 12:15 Peritoneal Amylase 13 Units/L (No Ref Range) 08/07/18 12:15 Urine Opiates Screen Negative ng/mL (Ovmiap=118) 08/07/18 10:12 Entire Visit Hgb 10.9 g/dL (12.9-16.9) L 08/09/18 05:52 Hct 32.8 % (37.5-50.1) L 08/09/18 05:52 PT 14.5 Seconds (9.4-12.1) H 08/06/18 20:49 Total Bilirubin 2.2 mg/dL (0.3-1.0) H 08/06/18 20:49 AST 34 Units/L (13-39) 08/06/18 20:49 ALT 13 Units/L (7-52) 08/06/18 20:49 Lipase 22 Units/L (11-82) 08/06/18 20:49 - ABG ABG results: PT/INR, D-dimer PT 14.5 Seconds (9.4-12.1) H 08/06/18 20:49 Consult Discharge Plan - Plan Referrals: Sam Perez MD [Primary Care Provider] - <Danica Soria - Last Filed: 08/10/18 12:12> Date of Encounter: 08/10/18 Time of Encounter: 18:00 - Time Spent With Patient Total time spent is greater than 50% in coordination of care (as documented) at patient's floor/unit and/or counseling patient: GI History of Present Illness - Data of Consult Requesting Physician: Nelia Smith - Consult Narrative History of present illness: Mr. Lord is a 63 year old male - Constitutional Vitals: Temp Pulse Resp BP Pulse Ox 98.1 F 93 20 86/54 97 08/10/18 11:10 08/10/18 11:10 08/10/18 11:10 08/10/18 11:10 08/10/18 11:10 Results - Labs CBC & Chem 7: 08/10/18 05:50 08/10/18 05:50 Labs: Last Result Calcium 8.2 mg/dL (8.6-10.3) L 08/10/18 05:50 Ferritin 337 ng/mL (20-250) H 08/09/18 11:25 Peritoneal Appearance CLEAR (Clear) 08/07/18 12:15 Peritoneal Volume 35.0 mL 08/07/18 12:15 Peritoneal RBC < 0.002 M/mcL (0.000-0.002) 08/07/18 12:15 Periton Tot Nuc Cells 71 TNC/mcL (0-300) 08/07/18 12:15 Periton Band Neuts 4.0 % 08/07/18 12:15 Periton Lymphocytes % 32.0 % 08/07/18 12:15 Periton Monocytes % 20.0 % 08/07/18 12:15 Periton Other Cells % 28.0 % 08/07/18 12:15 Peritoneal Tot Protein < 3.0 g/dL (No Ref Range) 08/07/18 12:15 Peritoneal LDH 38 Units/L (No Ref Range) 08/07/18 12:15 Peritoneal Glucose 124 mg/dL (No Ref Range) 08/07/18 12:15 Peritoneal Amylase 13 Units/L (No Ref Range) 08/07/18 12:15 Urine Opiates Screen Negative ng/mL ([id number]) 08/07/18 10:12 Entire Visit Hgb 9.8 g/dL (12.9-16.9) L 08/10/18 05:50 Hct 29.1 % (37.5-50.1) L 08/10/18 05:50 PT 14.5 Seconds (9.4-12.1) H 08/06/18 20:49 Ferritin 337 ng/mL (20-250) H 08/09/18 11:25 Total Bilirubin 2.2 mg/dL (0.3-1.0) H 08/06/18 20:49 AST 34 Units/L (13-39) 08/06/18 20:49 ALT 13 Units/L (7-52) 08/06/18 20:49 Lipase 22 Units/L (11-82) 08/06/18 20:49 - ABG ABG results: PT/INR, D-dimer PT 14.5 Seconds (9.4-12.1) H 08/06/18 20:49 - Impressions Impressions Chest X-Ray 08/09/18 13:56 IMPRESSION: Right middle lobe atelectasis versus pneumonia. Moderate pleural effusion at the right lung base, possibly loculated. D/ / Willy Hagan MD / Willy Hagan MD Interpreting Provider: Willy Hagan MD Liver Ultrasound 08/09/18 20:30 IMPRESSION: Appearance the liver compatible with cirrhosis with nodular contour and coarsened echotexture. No focal lesion of the visualized liver parenchyma. Sonographic interrogation of the liver for focal lesion is relatively insensitive. Surveillance for hepatocellular carcinoma with liver protocol MRI is preferred. Moderate ascites. D/ / Trina Bullock Cha, MD / Trina Bullock Cha, MD Interpreting Provider: Trina Bullokc Cha, MD - Attending Attestation I have personally performed a face to face evaluation on this patient. I have reviewed and agree with the care plan. History and Exam by me shows: Patient seen. Patient with cirrhosis and ascites. Examination does has 2+ pitting edema also has moderate ascites. Assessment: Patient with the cirrhosis and ascites ascitic tap negative for SBP. Patient was already started on antibiotics before the tap was done, Rec: Diuretics by mouth Lasix and Aldactone follow-up with GI as an outpatient Cipro 500 twice a day for 7 days only
[2018-08-09] MEDS: cefTRIAXone 2,000 MG in Water for inj. (sterile) 20 ML 20 ML IVP SCH (11:27)
[2018-08-09] MEDS: Metoprolol XL (24 HR) Succ 25 MG TAB.ER.24H PO SCH (11:28)
[2018-08-09 12:30] LABS: Hepatitis A Antibody IgM Nonreactive (Nonreactive); Hepatitis B Core IgM Nonreactive (Nonreactive); Hepatitis B Surface Antigen Nonreactive (Nonreactive); Hepatitis C Virus Antibody Nonreactive (Nonreactive)
--- NOTE | 2018-08-09 15:30 | Internal Med Progress Note ---
Hospitalist Progress Note - Encounter Date of Encounter: 08/09/18 Time of Encounter: 12:50 - Subjective Interval History: 08/09 Patient seen and evaluated at bedside, present and asks questions. He is in no pain, does not feel dizziness, tremor, craving for alcohol, agitation, or fever. Plan for liver US in evening. 08/08 Mr. Lodr is comfortable in bed, pleasant and denies pain, in the setting of his alcohol use he denies tremor, restlessness, he is s/p 5.9L removed yesterday, he states he feels better compared to yesterday pressure and dis tention, denies dizziness, no fevers, shortness of breath, chest pain, or abdominal pain 08/07 Patient seen and evaluated at bedside with and family in accompaniment. He has not been feverish, denies hemoptysis, bruising, hematochezia; no tremor, agitation, or pain. Screening Ankle-Brachial index resulted - normal bilateral MICAELA right 1.18, left 1.16; will hold off on arterial dopplar for now. Admission history: 63 y/o male, [facility] transfer for new onset ascites; he describes 8 weeks of pedal edema; progressively ascending swelling, and abdominal distension. CT x 2 07/27 then 08/06 showing interval worsening of ascites. - Exam Vitals: Temp Pulse Resp BP Pulse Ox 97.9 F 93 19 97/58 95 08/09/18 11:41 08/09/18 11:41 08/09/18 11:41 08/09/18 11:41 08/09/18 11:41 Exam: General: NAD. Self-ambulatory. Skin: no jaundice or bruising HEENT: Moist mucous membranes. No conjunctivae pallor, nonicteric Neck: No lymphadenopathy. No JVD. No carotid bruits. No palpable thyroid. Chest: Normal thoracic expansion. Diminished breath sounds bilaterally. Heart: Normal S1 & S2; rhythmic. No rubs or murmurs. Abdomen: less distended no pain, no caput Extremities: No clubbing, cyanosis. 2+ pedal edema, calves encased in EPCDs, no tremor Neurological: Awake, alert and oriented to person, place and time. No focal deficits. No tremor. Psych: Affect appropriate - Assessment and Plan (1) Ascites Current Visit: Yes Status: Chronic (2) Alcohol dependence Current Visit: Yes Status: Chronic (3) Hypertension Current Visit: Yes Status: Chronic (4) Smoker Current Visit: Yes Status: Acute (5) DVT prophylaxis Current Visit: Yes Status: Acute - Time Spent with Patient Total time spent is greater than 50% in coordination of care (as documented) at patient's floor/unit and/or counseling patient: Internal Medicine: Result - Labs CBC & Chem 7: 08/09/18 05:52 08/09/18 05:52 Labs: Short CBC 08/09/18 Range/Units 05:52 WBC 15.9 H (4.3-11.1) K/mcL Hgb 10.9 L (12.9-16.9) g/dL Hct 32.8 L (37.5-50.1) % Plt Count 346 (140-400) K/mcL Neutrophils # 11.7 H (1.6-8.9) K/mcL BMP 08/09/18 05:52 Sodium 143 Potassium 3.1 L Chloride 106 Carbon Dioxide 30 H BUN 26 H Creatinine 1.39 H Glucose 113 H Calcium 8.2 L - ABG Interpretation ABG results: PT/INR, D-dimer PT 14.5 Seconds (9.4-12.1) H 08/06/18 20:49 - VTE Documentation of Mechanical Device: Intermittent pneumatic compression device Consult Discharge Plan - Plan Referrals: Sam Perez MD [Primary Care Provider] - (1) Ascites Qualifiers: Ascites type: due to alcoholic cirrhosis Qualified Code(s): K70.31 - Alcoholic cirrhosis of liver with ascites (2) Alcohol dependence Qualifiers: Substance use status: other alcohol-induced disorder Qualified Code(s): F10.288 - Alcohol dependence with other alcohol-induced disorder (3) Hypertension Qualifiers: Hypertension type: essential hypertension Qualified Code(s): I10 - Essential (primary) hypertension
[2018-08-09] MEDS: Lactulose Oral Soln 20 GM/30 ML UDC PO SCH (21:26)
[2018-08-10 06:54] LABS: BUN/Creatinine Ratio 17 (6-26); Blood Urea Nitrogen 22 mg/dL (8-23); Calcium 8.2 mg/dL (8.6-10.3); Carbon Dioxide 29 mEq/L (23-29); Chloride 106 mEq/L (98-107); Glucose 108 mg/dL (70-105); Osmolality,Calculated 296 (280-300); Potassium 3.7 mEq/L (3.5-5.1); Sodium 141 mEq/L (136-145); eGFR For Non-African Americans 58 (> 60)
[2018-08-10 08:36] LABS: Basophils # 0.1 K/mcL (0.0-0.2); Basophils % 0.5 %; Eosinophils # 0.3 K/mcL (0.0-0.6); Eosinophils % 2.2 %; Hematocrit 29.1 % (37.5-50.1); Hemoglobin 9.8 g/dL (12.9-16.9); Immature Granulocytes % 0.4 % (0-4); Lymphocytes # 2.1 K/mcL (0.6-4.6); Lymphocytes % 13.9 %; Mean Corpuscular HGB Conc 33.7 g/dL (31.6-35.5); Mean Corpuscular Hemoglobin 34.8 pg (28.0-33.3); Mean Corpuscular Volume 103.2 fL (83.0-100.0); Mean Platelet Volume 10.9 fL (9.4-12.4); Monocytes # 1.3 K/mcL (0.0-1.3); Monocytes % 8.9 %; Neutrophils # 10.9 K/mcL (1.6-8.9); Platelet Count 307 K/mcL (140-400); Red Blood Count 2.82 M/mcL (4.19-5.50); Red Cell Distribution Width 13.1 % (11.5-14.5); Segmented Neutrophils % 74.1 %
[2018-08-10] MEDS ORDERED: Metoprolol XL (24 HR) Succ 25 MG TAB.ER.24H PO SCH (09:00)
[2018-08-10] MEDS ORDERED: Thiamine (B-1) 100 MG TABLET PO SCH (09:00)
[2018-08-10] MEDS: Folic Acid 1 MG TABLET PO SCH (09:23)
[2018-08-10] MEDS: Furosemide 40 MG TABLET PO SCH (09:23)
[2018-08-10] MEDS: Lactulose Oral Soln 20 GM/30 ML UDC PO SCH (09:23)
[2018-08-10] MEDS: Lisinopril-HCTZ 20-12.5mg TABLET PO SCH (09:23)
[2018-08-10] MEDS: Metoprolol XL (24 HR) Succ 25 MG TAB.ER.24H PO SCH (09:23)
[2018-08-10] MEDS: cefTRIAXone 2,000 MG in Water for inj. (sterile) 20 ML 20 ML IVP SCH (09:24)
[2018-08-10 11:14] VITALS: BP 86/54
--- NOTE | 2018-08-10 11:17 | Event Note ---
Date of Encounter: 08/10/18 Time of Encounter: 11:15 Ok to discharge patient, recommend treating with Cipro for 7-10 days.
--- NOTE | 2018-08-10 13:17 | Discharge Summary ---
<Morris Bernal - Last Filed: 08/10/18 13:30> - NOTES TO OUTPATIENT PROVIDER Notes to Outpatient Provider: -Continuing Toprol, Spironolactone, and Lasix same dosage. -Starting on Atorvastatin 20mg. -Discontinuing Lisinopril/HCTZ. -GI outpatient on the 4th Orders not resulted at time of discharge: Pending orders 08/06/18 20:49 Culture,Blood [BC] Stat 08/07/18 12:15 Culture,Body Fluid [RM] Routine 08/09/18 11:25 AFP Tumor Marker Non- Routine RC IgG JD rflx IFA Routine [id number]-5-[id number] Routine Ceruloplasmin Routine F-Actin IgG Reflex Sm Muscle Routine MPO/PR3 (ANCA) Antibodies Routine Mitochondrial M2 Antibody, IgG Routine Date of Encounter: 08/10/18 Time of Encounter: 09:30 - Discharge Diagnosis (1) Ascites Priority: Primary Status: Chronic Qualifiers: Ascites type: due to alcoholic cirrhosis Qualified Code(s): K70.31 - Alcoholic cirrhosis of liver with ascites (2) Alcohol dependence Priority: Secondary Status: Chronic Qualifiers: Substance use status: other alcohol-induced disorder Qualified Code(s): F10.288 - Alcohol dependence with other alcohol-induced disorder (3) Hypertension Priority: Secondary Status: Chronic Qualifiers: Hypertension type: essential hypertension Qualified Code(s): I10 - Essential (primary) hypertension (4) Smoker Priority: Secondary Status: Acute (5) DVT prophylaxis Priority: Secondary Status: Acute Hospital course: Mr. Lord is a 63 year old male who was admitted for worsening lower extremity and abdominal swelling, found to have significant ascites; paracentesis removed 5.9L, s/p albumin 25% 25mg x2; rocephin was given for prophylaxis against SBP after paracentesis. Fluid culture showed no growth to date, with 71 TNC. GI was consulted and evaluated patient for complications of cirrhosis (Liver ultrasound compatible with cirrhosis, workup: AFP, alpha-1 antitrypsin, RC, ceruloplas min, F actin, ferritin, AMA, hepatitis profile) deemed to have MELD score of 19. He remained hemodynamically stable throughout course, we are starting him on a low dose statin, continuing his BB/spironolactone/lasix, discontinuing his ada- i/hctz, and sending him home on PO fluoroquinolone for 7 more days of abx threatment. Smoking and alcohol cessation and resources discussed, he has a follow-up appt with Dr. Soria with GI on Aug.17. - Time Spent with Patient Total time spent providing and/or coordinating discharge services: - Discharge Medications Prescriptions: Atorvastatin [Lipitor] 20 mg PO HS #30 tablet Ciprofloxacin [Cipro] 500 mg PO BID 7 Days #14 tablet Home Medications: Furosemide [Lasix] 40 mg PO DAILY 08/08/18 [History] Metoprolol Succinate [Toprol Xl] 50 mg PO DAILY 08/08/18 [History] Salmeterol Xinafoate [Serevent Diskus] 50 mcg PO Q12H 08/08/18 [History] Spironolactone 100 mg PO DAILY 08/08/18 [History] Atorvastatin [Lipitor] 20 mg PO HS #30 tablet 08/10/18 [Rx] Ciprofloxacin [Cipro] 500 mg PO BID 7 Days #14 tablet 08/10/18 [Rx] Allergies/Adverse Reactions: Allergy/AdvReac Type Severity Reaction Status Date / Time No Known Allergies Allergy Verified 08/08/18 10:30 Date of admission: 08/09/18 13:57 Primary care physician: Sam Perez MD Consults: 08/06/18 20:30 Consult to Interventional Radiology [CONS] Routine Consulting Provider: Radiology Interventional Cols Reason for Consult: Patient transferred from [place] for new onset ascites with abdominal discomfort and leukocytosis. Please assist with paracentesis. Call Completed: Yes 08/09/18 09:15 Consult to Gastroenterology [CONS] Routine Consulting Provider: [facility] [place] Reason for Consult: history of alcohol abuse, denies hepatitis, worsening ascites, s/p paracentesis 5.9L off, specimen sent for cx, rocephin after, albumin x2 after, consult for abx tx for SBP and establishing with GI for likely portal htn/cirrhosis; has outpt appt 08/17 Dr. Soria. Hemodynamically stable. Thank you. Time Notified: 09:15 Call Completed: Yes 08/09/18 10:44 Consult to Edge Trimming Machine Operator [CONS] Routine Reason for SW Consult: alcohol abuse - Constitutional Vitals: Temp Pulse Resp BP Pulse Ox 98.1 F 93 20 86/54 97 08/10/18 11:10 08/10/18 11:10 08/10/18 11:10 08/10/18 11:10 08/10/18 11:10 General appearance: Present: A&O X 3 Exam: . - Head Head exam: Present: atraumatic, normocephalic - Eye Eye exam: Present: conjuntiva pink, sclera anicteric. Absent: scleral icterus - Neck Neck exam general surgery: Present: supple, trachea midline. Absent: lymphadenopathy - Respiratory Respiratory exam: Present: CTAB. Absent: accessory muscle use, rales, rhonchi, wheezes - Cardiovascular Cardiovascular exam: Present: RRR, +S1, +S2. Absent: diastolic murmur, gallop, rubs, systolic murmur - GI/Abdominal GI/Abdominal exam: Present: normal bowel sounds, soft, no peritoneal signs. Absent: distended, tenderness - Extremities Exam Extremities exam: Present: warm, radial pulses palpable and symmetrical. Absent: calf tenderness, cyanotic, pedal edema - Neurological Exam Neurological exam: Present: CN II-XII intact, oriented X3, no focal deficits. Absent: pronater drift, facial droop, speech deficit - Skin Skin exam: Present: dry, intact - Patient Status Disposition: Home, Self-Care Condition: Good Functional capacity at discharge: independent ambulation Overall status at discharge: patient is progressing back to baseline - Discharge Instructions Follow Up With: Sam Perez MD [Primary Care Provider] - 08/19/18 10:20 am Danica Soria MD [Partnered Physician] - (Has appt with Jolanta ALVARADO 08/17; per referral made prior to admission; seen inpatient as wel.) - Diet and Activity Activity: increase activity as tolerated Diet: regular diet - VTE Documentation of Mechanical Device: Intermittent pneumatic compression device <Nelia Smith - Last Filed: 08/10/18 14:44> - NOTES TO OUTPATIENT PROVIDER Notes to Outpatient Provider: He has right pleural effusion, asymptomatic, likely related to liver, requires outpt fu with CXR in upcoming weeks to assess for resolution/underlying disease process with diuretics at dc. Macrocytic anemia, hgb 9.8 on dc without active bleeding identified, requires further outpt work up. He requires Hep A and B outpt vaccination series as well. Orders not resulted at time of discharge: Pending orders 08/06/18 20:49 Culture,Blood [BC] Stat 08/09/18 11:25 AFP Tumor Marker Non- Routine RC IgG JD rflx IFA Routine [id number]-8-[id number] Routine Ceruloplasmin Routine F-Actin IgG Reflex Sm Muscle Routine MPO/PR3 (ANCA) Antibodies Routine Mitochondrial M2 Antibody, IgG Routine Date of Encounter: 08/10/18 - Discharge Diagnosis (1) Ascites Status: Chronic Qualifiers: Ascites type: due to alcoholic cirrhosis Qualified Code(s): K70.31 - Alcoholic cirrhosis of liver with ascites (2) Alcohol dependence Status: Chronic Qualifiers: Substance use status: other alcohol-induced disorder Qualified Code(s): F10.288 - Alcohol dependence with other alcohol-induced disorder (3) Hypertension Status: Chronic Qualifiers: Hypertension type: essential hypertension Qualified Code(s): I10 - Essential (primary) hypertension (4) Smoker Status: Acute (5) DVT prophylaxis Status: Acute (6) SBP (spontaneous bacterial peritonitis) Status: Suspected (7) Tobacco abuse Status: Chronic Hospital course: Mr. Lord is a 63 year old male - Time Spent with Patient Total time spent providing and/or coordinating discharge services: Less than 30 minutes (25 min) Date of admission: 08/09/18 13:57 Primary care physician: Sam Perez MD Consults: 08/06/18 20:30 Consult to Interventional Radiology [CONS] Routine Consulting Provider: Radiology Interventional Cols Reason for Consult: Patient transferred from [place] for new onset ascites w ith abdominal discomfort and leukocytosis. Please assist with paracentesis. Call Completed: Yes 08/09/18 09:15 Consult to Gastroenterology [CONS] Routine Consulting Provider: [facility] [place] [facility] Reason for Consult: history of alcohol abuse, denies hepatitis, worsening ascites, s/p paracentesis 5.9L off, specimen sent for cx, rocephin after, albumin x2 after, consult for abx tx for SBP and establishing with GI for likely portal htn/cirrhosis; has outpt appt 08/17 Dr. Soria. Hemodynamically stable. Thank you. Time Notified: 09:15 Call Completed: Yes 08/09/18 10:44 Consult to Edge Trimming Machine Operator [CONS] Routine Reason for SW Consult: alcohol abuse - Constitutional Vitals: Temp Pulse Resp BP Pulse Ox 98.1 F 93 20 86/54 97 08/10/18 11:10 08/10/18 11:10 08/10/18 11:10 08/10/18 11:10 08/10/18 11:10 - Diet and Activity Diet: low salt diet - Attending Attestation I examined this patient and my medical decision-making was reviewed with the Resident Physician Dr Bernal. I agree with the documented findings, disposition and treatment plan as described except to the extent set forth below. Mr Lord was admitted for ascites, cirrhosis and concern for SBP. GI followed. He has clinically improved and is stable for dc to home with outpt gi fu of cirrhosis, ascites and pleural effusion. Mr Lord feels back to baseline. no abd pain, fevers, chills, nausea or emesis. le edema and abd distension greatly improved. He denies sob, orthopnea, wheezing, cough or sputum production, he is aware of right pleural effusion and need for fu. 2 bms yesterday. gen- alert, awake,appears stated age eyes- pupils equal round , no scleral icterus cv- reg rate and rhythm, normal s1,s2, no murmurs appreciated, trace pitting le edema to shins lungs- ctabl, no wheezing, rhonchi or crackles, diminished righ base, normal resp effort on ra abd- soft, non tender, non distended, + bs neuro- AAOx3 Liver Cirrhosis with ascites and Right Pleural effusion-gi followed, cont lasix + aldactone on dc, added low dose statin at gi recs re cirrhosis, cont lactulose goal 2-4 bms daily,will have outpt egd to assess for varices, bp controlled on metoprolol on dc, defer to gi outpt provider if needs nadalol/propranolol in future, outpt cxr for effusion, fu pending liver work up with gi, outpt hepatitis vaccination with gi or pcp (hep a and b series) Possible SBP this admit- fluid analysis negative, have discussed with gi team today,received IV rocephin inpt for clnical sxs of sbp, will dc on cipro at their rec, fu outpt Leukocytosis- improved with abx treatment for possible sbp- cont cipro as above bl cxs ngtd, cxr with effusion, cannot rule out pna though pt has no sxs, ua neg for infection, afebrile Macrocytic anemia, uk if acute, chronic or acute on chronic as no priors to compare- stable, no active bleeding, fu with pcp outpt and cbc in 3-5 days, requires outpt further work up Further diagnoses and plan as documented by resident Addendum entered and electronically signed by Nelia Smith, 08/10/18 15:58: Pt has low normotensive to hypotensive BPs, asx in setting of cirrhosis, meds adjusted accordingly this admission, remains on BB given pending outpt work up for varices, risk vs benefit--pt bps this admission have been acceptable. He denies any dizziness, lightheadeness, fall concerns or ambulatory dysfunction.
[2018-08-11 06:44] LABS: AFP Tumor Marker Non-Pregnant 2 ng/mL (0-9)
[2018-08-11 06:48] LABS: ANA IgG by ELISA NONE DETECTED (None Detected)
[2018-08-11 12:11] LABS: F-Actin (sm muscle) Ab IgG 12 Units (0-19); Myeloperoxidase Ab 0 AU/mL (0-19); Serine Protease-3 Antibody 1 AU/mL (0-19)
== END 2018-08-10 15:27 | disposition home or self-care (01) | DRG 432 ==
LOC: 2ANU → SUATTDRO 19:41
PROVIDERS: ADMIT Hospitalist; ATTEND Internal Medicine